=== PATIENT | female | born 1950 | race Caucasian/White ===

== ENCOUNTER → 2021-09-25 14:43 | Outpatient (CLI) | payer MEDICARE, SELFPAY ==
--- NOTE | 2021-09-25 14:51 | DI.MG.S_ITS ---
BILATERAL DIGITAL SCREENING MAMMOGRAM 3D/2D WITH CAD: 09/25/2021 CLINICAL: Routine screening. Comparison is made to exams dated: 01/25/2018 mammogram, 05/23/2016 mammogram, and 07/26/2015 mammogram - outside location. The tissue of both breasts is extremely dense, which lowers the sensitivity of mammography. Current study was also evaluated with a Computer Aided Detection (CAD) system. There are benign calcifications in the left breast. There also are benign vascular calcifications in both breasts. Additionally, there are benign post operative findings in the left breast. No significant masses, calcifications, or other findings are seen in either breast. There has been no significant interval change. IMPRESSION: BENIGN There is no mammographic evidence of malignancy. A 1 year screening mammogram is recommended. This exam was interpreted at Station ID: [id number]. NOTE: For mammograms, a report in lay terms will be sent to the patient. Approximately 15% of breast malignancies will not be visualized mammographically. In the management of a palpable breast mass, a negative mammogram must not discourage biopsy of a clinically suspicious lesion. Electronically Signed By: Nelson felix/balbir:09/25/2021 15:19:52 letter sent: Normal Exam ACR BI-RADS Category 2: Benign Finding(s) [id number]
--- NOTE | 2021-09-25 14:52 | DI.RAD.S_ITS ---
PROCEDURE: XR DEXA AXIAL SKELETON INDICATIONS: ROUTINE SCREENING COMPARISON: None. FINDINGS: This blank DEXA report has been sent in error by the PACS system. The correct and complete report will be forthcoming in 1-2 days. Thank you for your patience and understanding. Dictated by: Christina Varela M.D. on 09/25/2021 at 16:10 Approved by: Christina Varela M.D. on 09/25/2021 at 16:54
--- NOTE | 2021-09-25 14:52 | DI.RAD.S_ITS ---
PROCEDURE: XR CHEST 2V INDICATIONS: COUGH TECHNIQUE: 2 views of the chest were acquired. COMPARISON: None. FINDINGS: Surgical changes and devices: None. Lungs and pleura: Biapical pleural thickening/scarring. No consolidation, pleural effusions or pneumothorax. Widening of the thorax in AP dimension. Mediastinum: Mediastinal contours are normal. Heart size is normal. Asymmetric prominence of the right pulmonary trunk, likely secondary to superimposed structures. Bones and chest wall: No suspicious bony abnormalities. Soft tissues appear unremarkable. IMPRESSION: No acute cardiopulmonary abnormality. Dictated by: Bill Guzman M.D. on 09/25/2021 at 16:02 Approved by: Bill Guzman M.D. on 09/25/2021 at 16:04
== END ==
PROVIDERS: PCP Internal Medicine; Referring Provider Internal Medicine; Visit Provider Internal Medicine
DX: C90.00 Multiple myeloma not having achieved remission (principal); Z12.31 Encounter for screening mammogram for malignant neoplasm of breast; M81.0 Age-related osteoporosis without current pathological fracture; Z78.0 Asymptomatic menopausal state; R05.9 Cough, unspecified
CPT/HCPCS: 71046; 77063; 77067; 77080

== ENCOUNTER → 2023-09-12 11:28 | Outpatient (CLI) | payer MEDICARE, SELFPAY ==
--- NOTE | 2023-09-12 11:31 | DI.MG.S_ITS ---
BILATERAL DIGITAL SCREENING MAMMOGRAM 3D/2D WITH CAD: 09/12/2023 CLINICAL: Routine screening. Comparison is made to exams dated: 09/25/2021 mammogram - [facility] and 05/23/2016 mammogram - outside [facility]. Both breasts are extremely dense, which lowers the sensitivity of mammography (category d />75% glandular tissue). Current study was also evaluated with a Computer Aided Detection (CAD) system. There are benign calcifications in the left breast. There also are benign vascular calcifications in both breasts. Additionally, there are benign post operative findings in the left breast. No significant masses, calcifications, or other findings are seen in either breast. There has been no significant interval change. IMPRESSION: BENIGN There is no mammographic evidence of malignancy. A 1 year screening mammogram is recommended. Based on the Tyrer Cuzick model (a risk assessment model) the patient's lifetime risk is 9.7% and her 10 year risk is 6.7%. According to the ACR, ACS, and NCCN guidelines, an annual breast MRI exam along with mammogram is recommended if the patient's lifetime risk is 20% or greater. This exam was interpreted at Station ID: [id number]. NOTE: For mammograms, a report in lay terms will be sent to the patient. Approximately 15% of breast malignancies will not be visualized mammographically. In the management of a palpable breast mass, a negative mammogram must not discourage biopsy of a clinically suspicious lesion. Electronically Signed By: Donald duarte/balbir:09/14/2023 14:17:06 letter sent: Normal Exam ACR BI-RADS Category 2: Benign Finding(s) [id number]
== END ==
PROVIDERS: PCP Internal Medicine; Referring Provider Internal Medicine; Visit Provider Internal Medicine
DX: Z12.31 Encounter for screening mammogram for malignant neoplasm of breast (principal)
CPT/HCPCS: 77063; 77067

== ENCOUNTER → 2024-08-08 12:57 | Outpatient (CLI) | payer MEDICARE, SELFPAY ==
--- NOTE | 2024-08-08 12:58 | DI.RAD.S_ITS ---
PROCEDURE: XR DEXA AXIAL SKELETON INDICATIONS: AGE RELATED OSTEOPOROSIS COMPARISON: [facility], CR, XR DEXA AXIAL SKELETON, 09/25/2021, 15:38. FINDINGS: Lumbar Spine: Bone mineral density 0.842 g/cm2, T score -1.9, previously -1.4. Left Hip: Bone mineral density 0.640 g/cm2, T score -2.5, previously -2.6. Left Femoral Neck: Bone mineral density 0.529 g/cm2, T score -2.9, previously -2.7. Right Hip: Bone mineral density 0.626 g/cm2, T score -2.6, previously -2.4. Right Femoral Neck: Bone mineral density 0.5 g/cm2, T score -3.1, previously -2.5. Fracture Risk Calculation (when applicable): Not reported due to osteoporosis. (T score greater or equal to -1.0 to: NORMAL) (T score from -1.1 to -2.4: OSTEOPENIA) (T score less than or equal to -2.5: OSTEOPOROSIS) IMPRESSION: Osteoporosis. Slightly decreased bone mineral density compared with prior. Follow-up guidelines as follows: Osteoporosis: Consider a repeat DEXA and Vertebral Fracture Assessment (VFA) exam in 2 years or sooner if medically necessary, to reassess this patient's status. Osteopenia: Consider a repeat DEXA in 2-3 years to reassess this patient's status, or if there is a new clinical indication. Normal: Consider a repeat DEXA in 5 years or sooner, or if there is a new clinical indication. All treatment decisions require clinical judgment and consideration of individual patient factors, including patient preferences, comorbidities, previous drug use, risk factors not captured in the FRAX model (e.g., frailty, falls, vitamin D deficiency, increased bone turnover, interval significant decline in bone density ) and possible under- or over-estimation of fracture risk by FRAX. In addition, the NOF Guide recommends that FDA-approved medical therapies be considered in postmenopausal women and men age >= 50 years with a: * Hip or vertebral (clinical or morphometric) fracture * T-score of <=-2.5 at the spine or hip * Ten-year fracture probability by FRAX of >= 3% for hip fracture or >=20% for major osteoporotic fracture. People with diagnosed cases of osteoporosis or at high risk for fracture should have regular bone mineral density tests. For patients eligible for Medicare, routine testing is allowed once every 2 years. The testing frequency can be increased to one year for patients who have rapidly progressing disease, those who are receiving or discontinuing medical therapy to restore bone mass, or have additional risk factors. Dictated by: Kai Marie M.D. on 08/08/2024 at 15:50 Approved by: Kai Marie M.D. on 08/08/2024 at 15:52
== END ==
PROVIDERS: PCP Internal Medicine; Referring Provider Internal Medicine; Visit Provider Internal Medicine
DX: M81.0 Age-related osteoporosis without current pathological fracture (principal)
CPT/HCPCS: 77080

== ENCOUNTER → 2024-09-13 09:07 | Outpatient (CLI) | payer MEDICARE, SELFPAY ==
--- NOTE | 2024-09-13 | DI.MG.S_ITS ---
BILATERAL DIGITAL SCREENING MAMMOGRAM 3D/2D WITH CAD: 09/13/2024 CLINICAL: Routine screening. Comparison is made to exams dated: 09/12/2023 mammogram, 09/25/2021 mammogram - [facility], and 01/25/2018 mammogram - outside location. The breasts are heterogeneously dense, which may obscure small masses (category c / 51-75% glandular tissue). Current study was also evaluated with a Computer Aided Detection (CAD) system. There are benign post operative findings in the left breast. No significant masses, calcifications, or other findings are seen in either breast. There has been no significant interval change. IMPRESSION: BENIGN There is no mammographic evidence of malignancy. A 1 year screening mammogram is recommended. Based on the Tyrer Cuzick model (a risk assessment model) the patient's lifetime risk is 6.1% and her 10 year risk is 4.5%. According to the ACR, ACS, and NCCN guidelines, an annual breast MRI exam along with mammogram is recommended if the patient's lifetime risk is 20% or greater. This exam was interpreted at Station ID: [id number]. NOTE: For mammograms, a report in lay terms will be sent to the patient. Approximately 15% of breast malignancies will not be visualized mammographically. In the management of a palpable breast mass, a negative mammogram must not discourage biopsy of a clinically suspicious lesion. Electronically Signed By: Eva Sage M.D., Ph.D. luiz/balbir:09/14/2024 01:27:38 letter sent: Normal Exam ACR BI-RADS Category 2: Benign
== END ==
PROVIDERS: PCP Internal Medicine; Referring Provider Internal Medicine; Visit Provider Internal Medicine
DX: Z12.31 Encounter for screening mammogram for malignant neoplasm of breast (principal); R92.333 Mammographic heterogeneous density, bilateral breasts
CPT/HCPCS: 77063; 77067

== ENCOUNTER → 2025-03-02 10:05 | Outpatient (CLI) | payer MEDICARE, SELFPAY ==
--- NOTE | 2025-03-02 10:06 | DI.RAD.S_ITS ---
PROCEDURE: XR DEXA AXIAL SKELETON INDICATIONS: AGE RELATED OSTEOPOROSIS COMPARISON: [facility], CR, XR DEXA AXIAL SKELETON, 08/08/2024, 13:11. FINDINGS: Lumbar Spine: Bone mineral density 0.842 g/cm2, T score -1.9, no significant change compared to prior. Left Femoral Neck: Bone mineral density is 0.549 g/cm2, T score -2.7. Left Hip: Bone mineral density 0.641 g/cm2, T score -2.5, no significant change compared to prior. Fracture Risk Calculation (when applicable): 10-year fracture risk of a major osteoporotic fracture 14% (21% with history of prior fracture) and of a hip fracture 4.5% (6.6% with history of prior fracture). (T score greater or equal to -1.0 to: NORMAL) (T score from -1.1 to -2.4: OSTEOPENIA) (T score less than or equal to -2.5: OSTEOPOROSIS) IMPRESSION: Osteoporosis Follow-up guidelines as follows: Osteoporosis: Consider a repeat DEXA and Vertebral Fracture Assessment (VFA) exam in 2 years or sooner if medically necessary, to reassess this patient's status. Osteopenia: Consider a repeat DEXA in 2-3 years to reassess this patient's status, or if there is a new clinical indication. Normal: Consider a repeat DEXA in 5 years or sooner, or if there is a new clinical indication. All treatment decisions require clinical judgment and consideration of individual patient factors, including patient preferences, comorbidities, previous drug use, risk factors not captured in the FRAX model (e.g., frailty, falls, vitamin D deficiency, increased bone turnover, interval significant decline in bone density ) and possible under- or over-estimation of fracture risk by FRAX. In addition, the NOF Guide recommends that FDA-approved medical therapies be considered in postmenopausal women and men age >= 50 years with a: * Hip or vertebral (clinical or morphometric) fracture * T-score of <=-2.5 at the spine or hip * Ten-year fracture probability by FRAX of >= 3% for hip fracture or >=20% for major osteoporotic fracture. Approved by: Eva Sage M.D.,Ph.D. on 03/02/2025 at 16:22
== END ==
PROVIDERS: PCP Internal Medicine; Referring Provider Internal Medicine; Visit Provider Internal Medicine
DX: M81.0 Age-related osteoporosis without current pathological fracture (principal)
CPT/HCPCS: 77080

== ENCOUNTER 2025-03-20 07:30 | Outpatient (RCR) | payer MEDICARE, SELFPAY ==
--- NOTE | 2025-03-06 09:29 | PT.OIE ---
Current Diagnoses Polyneuropathy, unspecified (03/06/25) Anesthesia of skin (03/06/25) Paresthesia of skin (03/06/25) Other abnormalities of gait and mobility (03/06/25) Visit Care Team Role Provider Type Elke Jiménez MD Attending Provider Non-Staff Family Provider Primary Care Provider Referring Provider Specialty: Internal Medicine Address: [place] [address], [address] [place] [address], [place], [id number] Email: Physical Therapy Initial Evaluation PT-OP-A Visit Information Start: 03/06/25 07:24 Freq: Status: Active Protocol: Document 03/06/25 08:19 MB (Rec: 03/06/25 08:43 MB Desktop) Out-Patient Physical Therapy Visit Information Visit Information Visit Type Initial Evaluation Visit Note Pt states she has [facility] Medicare, no KX Visit Start Time 08:19 Visit Stop Time 08:59 Visit Number 1 Number of FLASK [employer]ER Visits 0 Evaluation Information Evaluation Date 03/06/25 Precautions Precautions Polyneuropathy in lower legs and toes, OP PT-OP-B Current Condition Start: 03/06/25 07:24 Freq: Status: Active Protocol: Document 03/06/25 08:19 MB (Rec: 03/06/25 08:43 MB Desktop) Current Condition History of Current Condition Onset Date 3-4 years ago Current Complaints Numbness in toes History of Current Condition Pt has a history of polyneuropathy in lower legs and toes and OP. She was diagnosed 3 months ago with polyneuropathy. Pt likes to go bike riding for exercise. She likes to kayak and her toes get numb biking and kayaking. She also likes to go hiking. She got bigger shoes to help. She had a fall climbing on the driftwood and landed on her backpack. She has hiking sticks but does not use. Her balance has always been off. She does not have any pain. She denies visual changes and vertigo. Treatment Goals Patient/Caregiver Goals To get her balance better. PT-OP-C Subjective Start: 03/06/25 07:24 Freq: Status: Active Protocol: Document 03/06/25 08:19 MB (Rec: 03/06/25 08:43 MB Desktop) OP-PT Subjective Patient Comments Patient Comments See history of current condition. Patient Questionnaires Other Questionnaire Name and Score FES score is 16/64 PT-OP-D Balance Start: 03/06/25 07:24 Freq: Status: Active Protocol: Document 03/06/25 08:19 MB (Rec: 03/06/25 09:28 MB Desktop) OP-PT Balance Assessment Sitting Balance Static Sitting Balance Ability Normal Dynamic Sitting Balance Ability Normal Standing Balance Static Standing Balance Ability Normal Dynamic Standing Balance Ability Normal Balance Tests Other Other Balance Tests Performed FGA score is normal at 27/30 and pt has challenging with gait with EC and gait with narrow SHAW. She also reports fall last date on drift wood Khan Fall Scale Copyright Permission PT-OP-G Mobility & Gait Start: 03/06/25 07:24 Freq: Status: Active Protocol: Document 03/06/25 08:19 MB (Rec: 03/06/25 09:28 MB Desktop) OP Gait Assessment Comments Gait Comments Normal, good gait speed PT-OP-H Neuro Start: 03/06/25 07:24 Freq: Status: Active Protocol: Document 03/06/25 08:19 MB (Rec: 03/06/25 09:28 MB Desktop) Sensation Evaluation Gross Sensation Gross Sensation Left LE Impaired,Right LE Impaired Comments Summary Comments B great toes and second digits numb in supine and pt reports partial numbness and paresthesias in other toes that get worse with riding bike/toes are cold and numb and kayaking PT-OP-J Posture/Palpation/Skin Start: 03/06/25 07:24 Freq: Status: Active Protocol: Document 03/06/25 08:19 MB (Rec: 03/06/25 09:28 MB Desktop) Posture Evaluation Comments Posture Comments Standing posture in socks: increased thoracic kyphosis, left scapula lower than the right, pelvic alignment relatively good PT-OP-T Assessment and Plan Start: 03/06/25 07:24 Freq: Status: Active Protocol: Document 03/06/25 08:19 MB (Rec: 03/06/25 09:28 MB Desktop) Physical Therapy Assessment Goals 2 Impairment Lack of LE strengthening and balance HEP [employer] Goal (LTG) Pt will perform progressive HEP with I including [place] strengthening and balance exercises and gait with EC to improve confidence with activities. LTG Duration 8 weeks 1 Impairment Less balance with tandem gait and gait with EC [employer] Goal (LTG) Pt will score at least 29/30 on FGA to reflect improvement in gait with narrow SHAW and with eyes closed. LTG Duration 8 weeks Assessment Summary Assessment Pt is a 74 y/o female reporting 3-4 year history of increasing LE paresthesias, numbness and tingling. Recently, she has had paresthesias in lateral legs upon awakening and she always has numbness in B great and second toes. She reports other toe pareshthesias increased depending on activity. They increase rapidly with bike riding and also increase with kayaking. Pt also reports a history of back pain and more recent change in urine stream being slower at the end of assessment. She has a history of constipation as well. Given dx of polyneuropathy on order , PT focused on gait, balance and sensation this date and PT can further assess LE strengthening and spinal mobility in future treatments as needed given pt reports at end of assessment. At this time, lumbar radiculopathy should still be in differential dx given her symptoms get worse with positioning and she has a history of back pain and recent urine stream change. Pt may benefit from further diagnostics such as EMG or lumbar MRI as referring provider deems appropriate. Pt is active and would like to keep hiking, biking and kayaking and would like to work on her balance that feels off and PT agrees that PT for balance and strengthening training is appropriate. Physical Therapy Plan Frequency and Duration Frequency of Treatment 2x/Week Duration of treatment (weeks) 8 Plan of Care Start Date 03/06/25 Plan of Care End Date 05/08/25 Therapeutic Interventions Therapeutic Interventions Balance Training,Canalithic Repositioning,Coordination Training,Gait Training,Home Exercise Program,Joint Mobilizations,Manual Therapy, Neuromuscular Re-education, Patient/Caregiver Education, Self-Care/Home Management,Soft Tissue Mobilization,Taping, Therapeutic Activities, Therapeutic Exercises Modalities Cold Pack/Ice Massage,Electric Stimulation,Hot Packs, Iontophoresis Other Referrals/Consults Referrals/Consults Recommended Follow-up with provider about diagnostics to determine source of LE paresthesias Next Visit Focus/Plan Next Note Type Treatment Note Next Visit Plan Initiate balance exercises in hallway to include gait with EC, [place] balance and strengthening
--- NOTE | 2025-03-14 16:03 | PT.OTN ---
Current Diagnoses Polyneuropathy, unspecified (03/14/25) Anesthesia of skin (03/14/25) Paresthesia of skin (03/14/25) Other abnormalities of gait and mobility (03/14/25) Physical Therapy Treatment Note PT-OP-A Visit Information Start: 03/06/25 07:24 Freq: Status: Active Protocol: Document 03/14/25 13:58 NBM (Rec: 03/14/25 16:02 NBM Laptop) Out-Patient Physical Therapy Visit Information Visit Information Visit Type Treatment Note Visit Note Pt states she has [facility] Medicare, no KX Visit Start Time 13:55 Visit Stop Time 14:39 Visit Number 2 Number of PROC TECH Visits 1 Evaluation Information Evaluation Date 03/06/25 Precautions Precautions Polyneuropathy in lower legs and toes, OP PT-OP-B Current Condition Start: 03/06/25 07:24 Freq: Status: Active Protocol: Document 03/06/25 08:19 MB (Rec: 03/06/25 08:43 MB Desktop) Current Condition History of Current Condition Onset Date 3-4 years ago Current Complaints Numbness in toes History of Current Condition Pt has a history of polyneuropathy in lower legs and toes and OP. She was diagnosed 3 months ago with polyneuropathy. Pt likes to go bike riding for exercise. She likes to kayak and her toes get numb biking and kayaking. She also likes to go hiking. She got bigger shoes to help. She had a fall climbing on the driftwood and landed on her backpack. She has hiking sticks but does not use. Her balance has always been off. She does not have any pain. She denies visual changes and vertigo. Treatment Goals Patient/Caregiver Goals To get her balance better. PT-OP-C Subjective Start: 03/06/25 07:24 Freq: Status: Active Protocol: Document 03/14/25 13:58 NBM (Rec: 03/14/25 16:02 NBM Laptop) OP-PT Subjective Patient Comments Patient Comments Lamar reports she saw her new PCP and has been prescribed medication again for osteoporosis and they are working on a referral for EMG. Her bladder symptoms have remained unchanged. No tingling currently, but she has a headache which she had all night and so is drinking lots of water today; no other symptoms. She mentions end of session she has had therapy for piriformis muscle and for tight hip flexors previously, but is without a formal exercise program currently. She thinks she has 3# ankle weights at home. PT-OP-D Balance Start: 03/06/25 07:24 Freq: Status: Active Protocol: Document 03/06/25 08:19 MB (Rec: 03/06/25 09:28 MB Desktop) OP-PT Balance Assessment Sitting Balance Static Sitting Balance Ability Normal Dynamic Sitting Balance Ability Normal Standing Balance Static Standing Balance Ability Normal Dynamic Standing Balance Ability Normal Balance Tests Other Other Balance Tests Performed FGA score is normal at 27/30 and pt has challenging with gait with EC and gait with narrow SHAW. She also reports fall last date on drift wood Khan Fall Scale Copyright Permission PT-OP-G Mobility & Gait Start: 03/06/25 07:24 Freq: Status: Active Protocol: Document 03/06/25 08:19 MB (Rec: 03/06/25 09:28 MB Desktop) OP Gait Assessment Comments Gait Comments Normal, good gait speed PT-OP-H Neuro Start: 03/06/25 07:24 Freq: Status: Active Protocol: Document 03/06/25 08:19 MB (Rec: 03/06/25 09:28 MB Desktop) Sensation Evaluation Gross Sensation Gross Sensation Left LE Impaired,Right LE Impaired Comments Summary Comments B great toes and second digits numb in supine and pt reports partial numbness and paresthesias in other toes that get worse with riding bike/toes are cold and numb and kayaking PT-OP-J Posture/Palpation/Skin Start: 03/06/25 07:24 Freq: Status: Active Protocol: Document 03/06/25 08:19 MB (Rec: 03/06/25 09:28 MB Desktop) Posture Evaluation Comments Posture Comments Standing posture in socks: increased thoracic kyphosis, left scapula lower than the right, pelvic alignment relatively good PT-OP-Q Treatments Start: 03/06/25 07:24 Freq: Status: Active Protocol: Document 03/14/25 13:58 NBM (Rec: 03/14/25 16:02 NBM Laptop) Therapeutic Exercises Sitting Exercises 1-Knee extension Sitting Exercise Name LAQ ([facility]) Side bilateral Resistance AROM Reps/Minutes 2x30 alt Comments observable shaking of stabilizers hip abduction Sitting Exercise Name clamshells Resistance Lvl 2 Tb Equipment Used w/brief edu for TrA and breath relationship Reps/Minutes x10 Comments initial cues for TrA and breath Standing Exercises 7-Squats Standing Exercise Name (for [place]) Equipment Used handrail Reps/Minutes x10 (goal x30) Comments cues for hip hinge 6-Sit to stands Standing Exercise Name ([place]) Resistance No hands> thigh support Equipment Used standard mesh chair, initial tactile cues for hip hinge Reps/Minutes x5 no UE support (excessive knee valgus), x5 w/ thigh support (goal x30) Comments Pt unable to maintain LE alignment, hip hinge and ecc control wo UE support 5-Heel raises Standing Exercise Name ([place]) Side bilateral Resistance AROM>1# Rolanda Equipment Used handrail Reps/Minutes AROM x20, 1# Rolanda x20 Comments vc neutral foot, eccentric control 4-Hip extension Standing Exercise Name ([place]) Side bilateral Resistance AROM Equipment Used handrail Reps/Minutes x30 alt (goal 2x30) Comments vc for smaller ROM to avoid lumbar hyperextension 3-Hamstring curls Standing Exercise Name ([place]) Side bilateral Resistance AROM Equipment Used handrail Reps/Minutes x30 alt (goal 2x30) 2-Hip abduction Standing Exercise Name ([place]) Side bilateral Resistance AROM Equipment Used handrail Reps/Minutes 2x30 alt Comments cues for neutral feet and smaller ROM w/ upright posture resisted sidestep Side bilateral Resistance Lvl 1 at ankles>Lvl 2 Tb above knees, then ankles Equipment Used handrail Reps/Minutes Lvl 1 x10 ft ea, Lvl 2 knees x10 ft ea, Lvl 2 ankles 2x10 ft Comments cues for eccentric control and neutral foot position w/ Lvl 2 ankles Neuro Re-Education Treatment Balance Activities 14-Figure-8 walking Details ([place]) Surface firm Equipment black/red squares on floor Reps/Duration x2 (goal x8) 13-Toe walking Details ([place]) Surface firm Equipment handrail prn Reps/Duration 10 steps x2 (goal 10 steps x4) Comments cues to allow knee flexion with ambulation 12-Heel walking Details ([place]) Surface firm Equipment handrail prn Reps/Duration 10 steps x2 (goal 10 steps x4) 11-Tightrope walking backward Details Tandem ambulation bwd ([place]) Surface firm Equipment handrail prn Reps/Duration 10 steps x2 (goal 10 steps x4) 10-Tightrope walking forward Details Tandem ambulation fwd ([place]) Surface firm Equipment handrail prn Reps/Duration 10 steps x2 (goal 10 steps x4) Comments safety cue to turn towards handrail/wall for balance prn 9-Single leg standing Details SLS B ([place]) Surface firm Equipment handrail Reps/Duration 60 ea (goal 60 ea) 8-Tightrope Details tandem stance B ([place]) Surface firm Equipment handrail prn Reps/Duration 60 ea (goal 60 ea) Self-Care/Home Management Treatment Education Patient Education Body Mechanics,Home Exercise Program,Posture Other Education [place] strengthening and balance exercise HO provided to pt w/ specific cues after trialing all exercises, as well as flyer for group class. Edu to pt for upright posture and gluteal activation to improve strength and balance. Discussion that pt's 3# ankle weights are likely too high to start with but may be able to work up to those over time. PT-OP-T Assessment and Plan Start: 03/06/25 07:24 Freq: Status: Active Protocol: Document 03/14/25 13:58 NBM (Rec: 03/14/25 16:02 NBM Laptop) Physical Therapy Assessment Goals 2 Impairment Lack of LE strengthening and balance HEP Intermediate Goal (LTG) Pt will perform progressive HEP with I including [place] strengthening and balance exercises and gait with EC to improve confidence with activities. 03/14/25: Pt is issued [place] HO. LTG Duration 8 weeks 1 Impairment Less balance with tandem gait and gait with EC Intermediate Goal (LTG) Pt will score at least 29/30 on FGA to reflect improvement in gait with narrow SHAW and with eyes closed. LTG Duration 8 weeks Assessment Summary Assessment Treatment focus on strengthening and balance - [place] handout provided to pt with individualized cues focusing on neutral foot positioning, upright posture and gluteal activation. When not using Upper extremity support Loretta is challenged to perform sit to stand without excessive knee valgus and with hip hinge, but she is able to do so when modified to allow for thigh support. Physical Therapy Plan Frequency and Duration Frequency of Treatment 2x/Week Duration of treatment (weeks) 8 Plan of Care Start Date 03/06/25 Plan of Care End Date 05/08/25 Therapeutic Interventions Therapeutic Interventions Balance Training,Canalithic Repositioning,Coordination Training,Gait Training,Home Exercise Program,Joint Mobilizations,Manual Therapy, Neuromuscular Re-education, Patient/Caregiver Education, Self-Care/Home Management,Soft Tissue Mobilization,Taping, Therapeutic Activities, Therapeutic Exercises Modalities Cold Pack/Ice Massage,Electric Stimulation,Hot Packs, Iontophoresis Other Referrals/Consults Referrals/Consults Recommended Follow-up with provider about diagnostics to determine source of LE paresthesias Next Visit Focus/Plan Next Note Type Treatment Note Next Visit Plan Initiate balance exercises in hallway to include gait with EC, review [place] balance and strengthening and progress as tolerated.
--- NOTE | 2025-03-20 08:11 | PT.OTN ---
Current Diagnoses Polyneuropathy, unspecified (03/20/25) Anesthesia of skin (03/20/25) Paresthesia of skin (03/20/25) Other abnormalities of gait and mobility (03/20/25) Physical Therapy Treatment Note PT-OP-A Visit Information Start: 03/06/25 07:24 Freq: Status: Active Protocol: Document 03/20/25 07:29 MB (Rec: 03/20/25 08:11 MB Desktop) Out-Patient Physical Therapy Visit Information Visit Information Visit Type Treatment Note Visit Note Pt states she has [facility] Medicare, no KX Visit Start Time 07:29 Visit Stop Time 08:09 Visit Number 3 Number of SOCIAL WORK PROFESSOR Visits 0 Evaluation Information Evaluation Date 03/06/25 Precautions Precautions Polyneuropathy in lower legs and toes, OP PT-OP-B Current Condition Start: 03/06/25 07:24 Freq: Status: Active Protocol: Document 03/06/25 08:19 MB (Rec: 03/06/25 08:43 MB Desktop) Current Condition History of Current Condition Onset Date 3-4 years ago Current Complaints Numbness in toes History of Current Condition Pt has a history of polyneuropathy in lower legs and toes and OP. She was diagnosed 3 months ago with polyneuropathy. Pt likes to go bike riding for exercise. She likes to kayak and her toes get numb biking and kayaking. She also likes to go hiking. She got bigger shoes to help. She had a fall climbing on the driftwood and landed on her backpack. She has hiking sticks but does not use. Her balance has always been off. She does not have any pain. She denies visual changes and vertigo. Treatment Goals Patient/Caregiver Goals To get her balance better. PT-OP-C Subjective Start: 03/06/25 07:24 Freq: Status: Active Protocol: Document 03/20/25 07:29 MB (Rec: 03/20/25 08:11 MB Desktop) OP-PT Subjective Patient Comments Patient Comments Pt states that the exercises are pretty good. She had an imbalanced day yesterday. She is doing all the exercises. PT-OP-D Balance Start: 03/06/25 07:24 Freq: Status: Active Protocol: Document 03/06/25 08:19 MB (Rec: 03/06/25 09:28 MB Desktop) OP-PT Balance Assessment Sitting Balance Static Sitting Balance Ability Normal Dynamic Sitting Balance Ability Normal Standing Balance Static Standing Balance Ability Normal Dynamic Standing Balance Ability Normal Balance Tests Other Other Balance Tests Performed FGA score is normal at 27/30 and pt has challenging with gait with EC and gait with narrow SHAW. She also reports fall last date on drift [facility] Fall Scale Copyright Permission PT-OP-G Mobility & Gait Start: 03/06/25 07:24 Freq: Status: Active Protocol: Document 03/06/25 08:19 MB (Rec: 03/06/25 09:28 MB Desktop) OP Gait Assessment Comments Gait Comments Normal, good gait speed PT-OP-H Neuro Start: 03/06/25 07:24 Freq: Status: Active Protocol: Document 03/06/25 08:19 MB (Rec: 03/06/25 09:28 MB Desktop) Sensation Evaluation Gross Sensation Gross Sensation Left LE Impaired,Right LE Impaired Comments Summary Comments B great toes and second digits numb in supine and pt reports partial numbness and paresthesias in other toes that get worse with riding bike/toes are cold and numb and kayaking PT-OP-J Posture/Palpation/Skin Start: 03/06/25 07:24 Freq: Status: Active Protocol: Document 03/06/25 08:19 MB (Rec: 03/06/25 09:28 MB Desktop) Posture Evaluation Comments Posture Comments Standing posture in socks: increased thoracic kyphosis, left scapula lower than the right, pelvic alignment relatively good PT-OP-Q Treatments Start: 03/06/25 07:24 Freq: Status: Active Protocol: Document 03/20/25 07:29 MB (Rec: 03/20/25 08:11 MB Desktop) Therapeutic Exercises Sitting Exercises 1-Knee extension Comments Reviewed today from handout Standing Exercises 7-Squats Comments Reviewed from handout 6-Sit to stands Comments Reviewed from handout 5-Heel raises Comments Reviewed from handout 4-Hip extension Comments Reviewed from handout 3-Hamstring curls Comments Reviewed from handout 2-Hip abduction Comments Reviewed from handout Neuro Re-Education Treatment Balance Activities FGA Comments Score is 26/30, normal Walking with EC Comments Performed several reps near ballet bar with some veering away when not touching, ed to slide hand along island at home; in hallway, 20' with sliding fingernail along x4 and superv 14-Figure-8 walking Comments Reviewed from handout 13-Toe walking Comments Reviewed from handout 12-Heel walking Comments Reviewed from handout 11-Tightrope walking backward Comments Reviewed from handout 10-Tightrope walking forward Comments Reviewed from handout 9-Single leg standing Comments Reviewed from handout, 60 sec on right foot; 60 sec on left foot 8-Tightrope Comments Reviewed from handout, 60 sec with left foot behind, 60 sec with right foot behind PT-OP-T Assessment and Plan Start: 03/06/25 07:24 Freq: Status: Active Protocol: Document 03/20/25 07:29 MB (Rec: 03/20/25 08:11 MB Desktop) Physical Therapy Assessment Goals 2 Impairment Lack of LE strengthening and balance HEP Cattery Operator Goal (LTG) Pt will perform progressive HEP with I including [place] strengthening and balance exercises and gait with EC to improve confidence with activities. 03/14/25: Pt is issued [place] HO. 03/20/25: Completed HEP today LTG Duration Met 1 Impairment Less balance with tandem gait and gait with EC Cattery Operator Goal (LTG) Pt will score at least 29/30 on FGA to reflect improvement in gait with narrow SHAW and with eyes closed. 03/20/25: FGA score is 26/30, WNLs LTG Duration Met Assessment Summary Assessment Completed [place] program today including strengthening and balance, added and reviewed all exercises and talked about ankle weights and to perform full program 2-3x/wk and balance portion other days as needed. No further OPPT needs, will d/c PT. Physical Therapy Plan Frequency and Duration Frequency of Treatment 2x/Week Duration of treatment (weeks) 8 Plan of Care Start Date 03/06/25 Plan of Care End Date 05/08/25 Therapeutic Interventions Therapeutic Interventions Balance Training,Canalithic Repositioning,Coordination Training,Gait Training,Home Exercise Program,Joint Mobilizations,Manual Therapy, Neuromuscular Re-education, Patient/Caregiver Education, Self-Care/Home Management,Soft Tissue Mobilization,Taping, Therapeutic Activities, Therapeutic Exercises Modalities Cold Pack/Ice Massage,Electric Stimulation,Hot Packs, Iontophoresis Other Referrals/Consults Referrals/Consults Recommended Follow-up with provider about diagnostics to determine source of LE paresthesias Next Visit Focus/Plan Next Note Type Treatment Note
== END 2025-03-20 14:32 | disposition home or self-care (01) ==
LOC: PHYS 07:30
PROVIDERS: Family Provider Internal Medicine; PCP Internal Medicine; Referring Provider Internal Medicine; Visit Provider Internal Medicine
DX: R20.0 Anesthesia of skin (principal); R20.2 Paresthesia of skin; G62.9 Polyneuropathy, unspecified; R26.89 Other abnormalities of gait and mobility
CPT/HCPCS: 97110; 97112; 97162; 97535

== ENCOUNTER → 2025-04-06 08:35 | Outpatient (CLI) | payer MEDICARE, SELFPAY ==
--- NOTE | 2025-04-06 08:36 | DI.US.S_ITS ---
MM diagnostic mammo unilat RT, US breast RT limited: 04/06/2025 BI-RADS: 4 CLINICAL: 74-year old female for right diagnostic mammogram and right diagnostic breast ultrasound. Tyrer-Cuzick lifetime risk of 3.5%. No personal or first-degree family history of breast cancer. The patient reports a palpable abnormality (1 month) in the right breast. The patient had prior bilateral breast biopsies. PRIOR EXAMS 09/13/2024, 09/12/2023, 09/25/2021. MAMMOGRAPHY TECHNIQUE: 2D and 3D (tomosynthesis) digital mammographic views obtained, with additional images as needed for full coverage. Current study was also evaluated with a Computer Aided Detection (CAD) system. ULTRASOUND TECHNIQUE Right Axilla. Real-time pinzon scale and color doppler imaging of the area of clinical interest was performed with image documentation. TARGETED Right Breast Ultrasound: Real-time ultrasound exam was performed focused to area of clinical and/or imaging concern. DENSITY Right: C. The breasts are heterogeneously dense, which may obscure small masses. MAMMOGRAPHY FINDINGS Right: A skin marker was placed in the area of clinical concern, and no mammographic abnormality is identified. There are no suspicious masses, calcifications, or other findings in the breast. ULTRASOUND FINDINGS Right: Lower Outer at 8:00, 2 cm from nipple, measuring 0.9 x 0.8 x 0.6 cm: Correlating with palpable lump there is a round, circumscribed, hypoechoic mass. No associated axillary adenopathy present. IMPRESSION: Right (Mass): Lower Outer at 8:00, 2 cm from nipple, measuring 0.9 x 0.8 x 0.6 cm * Suspicious findings with likelihood of malignancy. RECOMMENDATIONS Right: Lower Outer at 8:00, 2 cm from nipple * Ultrasound-guided biopsy for further evaluation. COMMENTS: The above findings and recommendations were discussed with the patient by Dr. Sage over the phone at the time of imaging completion. OVERALL ASSESSMENT CATEGORY BI-RADS-4: Suspicious. ELECTRONICALLY SIGNED: Eva Sage M.D. on 04/06/2025 at 11:39:13 AM PT Interpreting Station ID: [id number]
== END ==
LOC: MAMMO 08:36
PROVIDERS: Family Provider Internal Medicine; PCP Nurse Practitioner Family; Referring Provider Nurse Practitioner Family; Visit Provider Nurse Practitioner Family
DX: N63.41 Unspecified lump in right breast, subareolar (principal); R91.8 Other nonspecific abnormal finding of lung field; Z68.1 Body mass index [BMI] 19.9 or less, adult
CPT/HCPCS: 76642; 77065; 99214; G0279

== ENCOUNTER → 2025-05-05 10:29 | Outpatient (CLI) | payer MEDICARE, SELFPAY ==
--- NOTE | 2025-05-05 | PATH_ITS ---
[facility] Accession Number: [id number] No. of containers..01 Tissue . 01 Material submitted: . breast - RIGHT BREAST MASS 8:00 2CMFN . 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 Fragments of fibroconnective tissue with focal features of cyst lining and a small region of atypical ducts; please see microscopic description. Negative for definite invasion. SUNSHINE 05/11/2025 1510 Local . 01 Comment: As part of ongoing water quality control engineer, this case is also reviewed by Dr. Sandra Lyon, who agrees with the interpretation. . 01 Electronically signed: . Charlene Rdz MD, Pathologist NPI- [id number] . 01 Gross description: . Received in formalin with two identifiers and right breast 8 o'clock 2 cm FN, are multiple yellow to wright soft tissue fragments admixed with hemorrhagic material aggregating to 1.5 x 1.4 x 0.3 cm. Inked blue, filtered, and submitted entirely in cassette A1. . The specimen was removed on 05/05/2025 at 1141 hours. Time in formalin not provided. Cold ischemic time cannot be calculated. Total fixation time is approximately 60 hours. ([id number]) /SUNSHINE 05/06/2025 2127 Local . 01 Microscopic: . Microscopic examination of the breast mass reveals largely fragmented tissue with detached groups of atypical ductal epithelium. To better evaluate those atypical ducts, immunostains are performed with the following results: CK5/6 appears diminished and Estrogen Receptor (ER) appears strong, uniform positive. ER and CK5/6 immunostains support the diagnosis of atypical ductal hyperplasia/ductal carcinoma in situ (over ductal hyperplasia). As the detached groups of atypical glands show no intact stroma, the possibility of invasive carcinoma cannot be assessed. In addition, there are fragments of fibroconnective tissue with features of cyst lining and a small region of atypical ducts. To better evaluate that region, immunostains are performed: Myosin appears decreased on the areas of interest and basal/myoepithelial marker p63 is equivocal for definite invasive carcinoma. . Overall, due to equivocal p63 staining and marked fragmentation of the tissue, the findings are not definite for an invasive component. . E-cadherin immunostain is performed and shows strong uniform positivity on the atypical epithelial groups, supporting ductal differentiation. . Progesterone Receptor ([place]) shows patchy variable staining, intermediate to focal strong, 20 to 30%. Estrogen Receptor (ER) is positive, strong intensity, more than 91%. . . * This test was developed and the performance characteristics were validated by [employer]. It has not been cleared or approved by the U.S. Food and Drug Administration. . 01 Pathologist provided ICD-10: D05.11 . 01 CPT . 818786, H09072, C93715, 076834, 689125 Performed at: [address] [address], [place], [place] [id number] MD Nelson Georges MD Phone: [phone]
--- NOTE | 2025-05-05 10:30 | DI.US.S_ITS ---
Right US bx breast perc w vac device: 05/05/2025. Rad-Path Correlation: Pending CLINICAL: 74-year old female for right procedure that resulted from diagnostic mammogram on 04/06/2025. Tyrer-Cuzick lifetime risk of 3.5%. No personal or first-degree family history of breast cancer. The patient had prior bilateral breast biopsies. CONSENT Risks including but not limited to bleeding and infection, benefits and alternatives were discussed with the patient. The patient agreed to the procedure and signed informed consent. Time out procedure was used. ROUTINE Right: Patient positioned in the supine or supine-oblique position, prepped and draped in the usual manner using sterile technique. TECHNIQUE Right Breast: Lower Outer at 8:00: Procedure: Ultrasound-guided vacuum-assisted biopsy of a mass. Device: 14-gauge vacuum-assisted biopsy instrument. Bard(R) Monopty(R) 14g. Anesthesia: Local anesthesia obtained using 1%-lidocaine. Skin Entry: Incision with #11 blade. Targeting Confirmation: Real-time Observation and Post-Procedure Imaging. Post-procedure imaging: Post-procedure imaging confirms in target location at margin of target. Rad/Path Correlation: Pending receipt of pathology report. Conclusion: Ultrasound-guided Vacuum-assisted biopsy with post-procedure CC and ML mammographic views, Right Breast: Lower Outer at 8:00 COMPLICATIONS: No complications were encountered while the patient was in our department. DISPOSITION The patient left our department in good condition with aftercare instructions and urged to contact us should any problem arise. The breast was compressed to achieve hemostasis. SUMMARY Right Breast: Lower Outer at 8:00: Ultrasound-guided vacuum-assisted biopsy of a mass. PATHOLOGY Right Breast: Lower Outer at 8:00: Radiologist-Pathologist Correlation: Pending receipt of pathology report. ELECTRONICALLY SIGNED: Kai Marie M.D. on 05/05/2025 at 04:11:35 PM PT Interpreting Station ID: [id number]
--- NOTE | 2025-05-05 10:30 | DI.MG.S_ITS ---
MM diagnostic mammo [id number]: 05/05/2025. BI-RADS: None CLINICAL: 74-year old female for right diagnostic mammogram. Tyrer-Cuzick lifetime risk of 3.5%. No personal or first-degree family history of breast cancer. The patient had prior bilateral breast biopsies. PRIOR EXAMS Mammogram(s): 04/06/2025. Breast Ultrasound(s): 04/06/2025. Three Other Exams on 09/13/2024, 09/12/2023, 09/25/2021. MAMMOGRAPHY TECHNIQUE: 2D and 3D (tomosynthesis) digital mammographic views obtained, with additional images as needed for full coverage. Current study was also evaluated with a Computer Aided Detection (CAD) system. DENSITY Right: C. The breasts are heterogeneously dense, which may obscure small masses. MAMMOGRAPHY FINDINGS Right: Lower Outer at 8:00, 2 cm from nipple: There is a (Mini [place]) biopsy marker in targeted location. IMPRESSION: Right * Biopsy marker present. OVERALL ASSESSMENT CATEGORY BI-RADS None: This exam requires no BI-RADS. ELECTRONICALLY SIGNED: Kai Marie M.D. on 05/05/2025 at 04:12:42 PM PT Interpreting Station ID: [id number]
== END ==
LOC: US 10:29
PROVIDERS: Family Provider Internal Medicine; PCP Nurse Practitioner Family; Referring Provider Nurse Practitioner Family; Visit Provider Nurse Practitioner Family
DX: D05.11 Intraductal carcinoma in situ of right breast (principal); N63.13 Unspecified lump in the right breast, lower outer quadrant
CPT/HCPCS: 19083; 77065

== ENCOUNTER → 2025-05-08 09:43 | Outpatient (CLI) | payer MEDICARE, SELFPAY ==
--- NOTE | 2025-05-08 09:44 | DI.US.S_ITS ---
MM diagnostic mammo unilat LT, US breast LT limited: 05/08/2025 BI-RADS: 1 CLINICAL: 74-year old female for left diagnostic mammogram and left diagnostic breast ultrasound. Tyrer-Cuzick lifetime risk of 3.5%. No personal or first-degree family history of breast cancer. The patient reports a palpable abnormality (1 month) in the left breast. The patient had prior bilateral breast biopsies. PRIOR EXAMS Mammogram(s): 05/05/2025, 04/06/2025. Breast Ultrasound(s): 04/06/2025. Breast Procedure(s): 05/05/2025. Three Other Exams on 09/13/2024, 09/12/2023, 09/25/2021. MAMMOGRAPHY TECHNIQUE: 2D and 3D (tomosynthesis) digital mammographic views obtained, with additional images as needed for full coverage. Current study was also evaluated with a Computer Aided Detection (CAD) system. ULTRASOUND TECHNIQUE TARGETED Left Breast Ultrasound: Real-time ultrasound exam was performed focused to area of clinical and/or imaging concern. DENSITY Left: C. The breasts are heterogeneously dense, which may obscure small masses. MAMMOGRAPHY FINDINGS Left: A marker overlies the breast at the site of focal painful lump There is no underlying mammographic finding to explain symptoms. Scattered vascular and dystrophic calcifications also present in the tissue. ULTRASOUND FINDINGS Left: Outer at 2:00, 2 cm from nipple: Dense fibroglandular tissue is present. There is no sonographic correlate for the symptom of focal pain or palpable abnormality. No suspicious sonographic finding present. IMPRESSION: Left * No imaging correlate to explain left breast focal painful lump. * No evidence of malignancy. RECOMMENDATIONS Bilateral * Annual screening mammography. COMMENTS: Findings and recommendations were conveyed to the patient during today's evaluation. OVERALL ASSESSMENT CATEGORY BI-RADS-1: Negative. [employer] recommends annual screening mammography beginning at age 40 for women with average risk of breast cancer. ELECTRONICALLY SIGNED: Queenie Mancia M.D. on 05/10/2025 at 12:11:57 AM PT Interpreting Station ID: [id number]
== END ==
LOC: MAMMO 09:43
PROVIDERS: Family Provider Internal Medicine; PCP Nurse Practitioner Family; Referring Provider Nurse Practitioner Family; Visit Provider Nurse Practitioner Family
DX: N63.42 Unspecified lump in left breast, subareolar (principal); R92.332 Mammographic heterogeneous density, left breast
CPT/HCPCS: 76642; 77065; G0279

== ENCOUNTER → 2025-09-15 13:44 | Outpatient (CLI) | payer MEDICARE, SELFPAY ==
[2025-09-15 14:29] LABS: Appearance Urine UA CLEAR; Bilirubin Urine UA NEGATIVE (NEGATIVE); Color Urine UA YELLOW; Glucose Urine UA NEGATIVE (Negative); Ketones Urine UA NEGATIVE (NEGATIVE); Leukocyte Esterase Urine UA NEGATIVE (NEGATIVE); Nitrite Urine UA NEGATIVE (Negative); Occult Blood Urine UA TRACE-INTACT (Negative); Protein Urine UA NEGATIVE (Negative); Specific Gravity Urine UA 1.010 (1.000-1.035); Urobilinogen Urine UA 0.2 E.U./dL (0.2)
[2025-09-15 14:30] LABS: pH Urine UA 7.0 (4.5-8.0)
[2025-09-15 14:34] LABS: Culture Indicated Urine Cult Not Indicated
== END ==
LOC: LAB 13:45
PROVIDERS: Family Provider Internal Medicine; PCP Nurse Practitioner Family; Referring Provider Family Medicine; Visit Provider Family Medicine
DX: R30.0 Dysuria (principal)
CPT/HCPCS: 81001